=== PATIENT | female | born 1980 | race African-American/Black ===

== ENCOUNTER 2017-11-04 20:40 | Emergency (ER) | payer MEDICAID, OTHER ==
[~2017-11-04] VITALS: Ht 172.7 cm; Wt 99.8 kg
[2017-11-04 20:48] VITALS: BP 149/89
[2017-11-05] MEDS ORDERED: KETOROLAC TROMETH 30 MG/ML 1ML VIAL ONE (04:48)
[2017-11-05] MEDS ORDERED: ONDANSETRON HCL 4 MG/2 ML VIAL ONE (04:48)
== END 2017-11-05 01:39 | disposition left against medical advice (07) ==
LOC: EDBD 20:40 → ER 20:40
DX: R07.89 Other chest pain (principal); Z53.21 Procedure and treatment not carried out due to patient leaving prior to being seen by health care provider
CPT/HCPCS: 93005; J1885; J2405

== ENCOUNTER 2019-10-10 05:40 | Emergency (ER) | payer OTHER, MEDICAID ==
[~2019-10-10] VITALS: Ht 177.8 cm; Wt 108.9 kg
[2019-10-10 05:50] VITALS: BP 138/80
== END 2019-10-10 09:36 | disposition left against medical advice (07) ==
LOC: EDBD 05:40 → EDUNIT# 05:40 → ER 05:40
DX: M79.605 Pain in left leg (principal); M79.604 Pain in right leg; R51 Headache; Z53.21 Procedure and treatment not carried out due to patient leaving prior to being seen by health care provider